=== PATIENT | female | born 1965 | race African-American/Black ===

== ENCOUNTER 2024-01-29 08:51 | Inpatient (IN) | payer MEDICAID ==
[~2024-01-29] VITALS: Ht 165.1 cm; Wt 113.9 kg
[~2024-01-29 08:51] MED LIST: AMLO10TA80 MT; CLOP75TA33 PO; HYDR-2988 MT; LOSA50TA41 MT
[2024-01-29 08:54] VITALS: O2SAT 99
[2024-01-29 09:27] LABS: BASOPHILS % 0.6 % (0.0-2.0); EOSINOPHILS % 3.5 % (0.0-5.0); HEMATOCRIT. 35.8 % (36.0-48.0); HEMOGLOBIN. 12.2 g/dL (12.0-16.0); LYMPHOCYTES % 31.7 % (20.0-50.0); MEAN CORPUSCULAR HEMOGLOBIN 31.3 pg (28.0-32.0); MEAN CORPUSCULAR HGB CONC 34.2 g/dL (31.0-37.0); MEAN CORPUSCULAR VOLUME 91.4 fL (81.0-99.0); MONOCYTES % 6.6 % (2.0-8.0); NEUTROPHILS % 57.6 % (40.0-76.0); PLATELET 360 x1000/uL (130-400); RED BLOOD CELL COUNT 3.91 mill/uL (4.2-5.4); RED CELL DISTRIBUTION WIDTH 12.4 % (11.6-14.6); WHITE BLOOD COUNT 5.2 x1000/uL (4.5-11.0)
[2024-01-29 09:36] LABS: CHLORIDE 106 mEq/L (98-107); POTASSIUM 3.7 mEq/L (3.5-5.1); SODIUM 140 mEq/L (136-145)
[2024-01-29 09:37] LABS: CALCIUM 10.5 mg/dL (8.7-10.4); CARBON DIOXIDE 28 mEq/L (21-32)
[2024-01-29 09:39] LABS: PROTHROMBIN TIME 10.9 sec (9.6-11.0)
[2024-01-29 09:42] LABS: CREATININE 0.6 mg/dL (0.6-1.0); GLUCOSE 95 mg/dL (70-105)
[2024-01-29 09:43] LABS: UREA NITROGEN BLOOD 12 mg/dL (9-23)
[2024-01-29 09:55] LABS: TROPONIN I HIGH SENSITIVITY < 4 ng/L (3.0-34)
[2024-01-29] MEDS: HYDRALAZINE 20MG/ML VIAL IV ONE (12:15)
[2024-01-29 14:56] LABS: CLARITY URINE CLEAR (CLEAR); COLOR URINE YELLOW (YELLOW); GLUCOSE URINE NEGATIVE (NEGATIVE); KETONES URINE NEGATIVE (NEGATIVE); LEUKOCYTE ESTERASE URINE NEGATIVE (NEGATIVE); NITRITE URINE NEGATIVE (NEGATIVE); OCCULT BLOOD URINE NEGATIVE (NEGATIVE); PH URINE 7.5 (4.5-8.0); PROTEIN URINE NEGATIVE (NEGATIVE); SPECIFIC GRAVITY URINE 1.021 (1.005-1.030)
[2024-01-29] MEDS ORDERED: ONDANSETRON HCL 4MG/2ML INJ IV PRN (15:45)
[2024-01-29] MEDS ORDERED: GUAIFENESIN 200MG/10ML SUGAR FREE UDC PO PRN (15:45)
[2024-01-29] MEDS ORDERED: ACETAMINOPHEN 325MG TABLET PO PRN (15:45)
[2024-01-29] MEDS ORDERED: CLONIDINE 0.1MG TABLET PO PRN (15:45)
[2024-01-29] MEDS ORDERED: IPRATROPIUM/ALBUTEROL 0.5-3(2.5)MG/3ML NEB HHN PRN (15:45)
[2024-01-29] MEDS ORDERED: NA PHOS,M-B/NA PHOS,DI-BA ENEMA 118ML PR PRN (15:45)
[2024-01-29] MEDS ORDERED: MAGNESIUM/ALUMINUM HYDROXIDE/SIMETHICONE 30ML UDC PO PRN (15:45)
[2024-01-29 17:30] VITALS: BP 152/84; PULSE 77; RESP 18; TEMP 97.9
[2024-01-29] MEDS: ENOXAPARIN 30MG/0.3ML SYR SUBCUT SCH (19:18)
[2024-01-29] MEDS: HYDRALAZINE HCL 10MG TABLET PO SCH (19:30)
[2024-01-29 20:00] VITALS: BP 130/77; PULSE 79; RESP 20; TEMP 97.7
[2024-01-29] MEDS: GABAPENTIN 100MG CAPSULE PO SCH (22:36)
[2024-01-30] VITALS: BP 108/56; PULSE 87; RESP 20; TEMP 97.7
[2024-01-30 01:25] LABS: CREATINE KINASE 23 IU/L (34-145)
[2024-01-30] MEDS ORDERED: *PATIENT'S OWN MEDICATION STORAGE XX SCH (03:45)
[2024-01-30 04:00] VITALS: BP 120/72; PULSE 80; RESP 20; TEMP 97.9
[2024-01-30 08:00] VITALS: BP 119/70; PULSE 78; RESP 19; TEMP 97.5
[2024-01-30] MEDS: LOSARTAN 50 MG TABLET PO SCH (08:28)
[2024-01-30] MEDS: CLOPIDOGREL 75MG TABLET PO SCH (08:28)
[2024-01-30 12:00] VITALS: BP 109/63; PULSE 77; RESP 18; TEMP 97.5
[2024-01-30 16:00] VITALS: BP 113/68; PULSE 78; RESP 19; TEMP 98.1
[2024-01-30] MEDS: FAMOTIDINE 20MG TABLET PO SCH (21:00)
[2024-01-30] MEDS: FLUTICASONE PROPIONATE 50MCG/SPRAY BOTTLE BOTHNSTRLS SCH (21:00)
[2024-01-31] VITALS: BP 107/60; PULSE 71; RESP 18; TEMP 97.5
[2024-01-31 04:00] VITALS: BP 108/61; PULSE 65; RESP 18; TEMP 97
[2024-01-31 08:00] VITALS: BP 126/77; PULSE 72; RESP 18; TEMP 96.8
[2024-01-31] MEDS: AMLODIPINE 10MG TABLET PO SCH (09:00)
[2024-01-31 12:00] VITALS: BP 115/63; PULSE 72; RESP 18; TEMP 96.9
[2024-01-31 16:00] VITALS: BP 127/79; PULSE 69; RESP 20; TEMP 96.6
[2024-01-31] MEDS: DICLOFENAC SODIUM 1% GEL 50GM TOP SCH (19:30)
[2024-01-31 20:00] VITALS: BP 95/68; PULSE 63; RESP 18; TEMP 98
[2024-02-01] VITALS: BP 132/81; PULSE 71; RESP 18; TEMP 98
[2024-02-01 04:00] VITALS: BP 123/67; PULSE 77; RESP 18; TEMP 97.6
[2024-02-01] MEDS: ACETAMINOPHEN 325MG TABLET PO PRN (06:20)
[2024-02-01 08:00] VITALS: BP 130/82; PULSE 68; RESP 18; TEMP 97.5
[2024-02-01 12:00] VITALS: BP 120/75; PULSE 68; RESP 19; TEMP 97.9
[2024-02-01 16:00] VITALS: BP 137/78; PULSE 75; RESP 18; TEMP 97.9
[2024-02-01 20:00] VITALS: BP 115/62; PULSE 80; RESP 19; TEMP 98.4
[2024-02-02] VITALS: BP 122/66; PULSE 82; RESP 18; TEMP 97.7
[2024-02-02 04:00] VITALS: BP 119/66; PULSE 70; RESP 19; TEMP 98.3
[2024-02-02 08:00] VITALS: BP 112/68; PULSE 64; RESP 20; TEMP 98.1
[2024-02-02 12:00] VITALS: BP 108/63; PULSE 67; RESP 20; TEMP 98.1
[2024-02-02 16:00] VITALS: BP 115/73; PULSE 84; RESP 20; TEMP 98.1
[2024-02-03 08:00] VITALS: BP 115/71; PULSE 71; RESP 18; TEMP 97.7
[2024-02-03 12:00] VITALS: BP 112/63; PULSE 69; RESP 18; TEMP 97.7
[2024-02-03 16:00] VITALS: BP 107/56; PULSE 75; RESP 18; TEMP 98.2
[2024-02-03 20:00] VITALS: BP 103/63; PULSE 78; RESP 20; TEMP 97.5
[2024-02-04] VITALS: BP 118/65; PULSE 69; RESP 20; TEMP 97.9
[2024-02-04 04:00] VITALS: BP 119/63; PULSE 70; RESP 20; TEMP 96.1
[2024-02-04 08:00] VITALS: BP 120/63; PULSE 66; RESP 17; TEMP 97.5
[2024-02-04 12:00] VITALS: BP 98/72; PULSE 75; RESP 18; TEMP 97.3
[2024-02-04 16:00] VITALS: BP 106/57; PULSE 81; RESP 20; TEMP 97.1
[2024-02-04 20:00] VITALS: BP 108/66; PULSE 80; RESP 18; TEMP 97.9
[2024-02-05] VITALS: BP 118/74; PULSE 88; RESP 18; TEMP 97.7
[2024-02-05 04:00] VITALS: BP 119/69; PULSE 70; RESP 18; TEMP 97.9
[2024-02-05 08:00] VITALS: BP 126/76; PULSE 70; RESP 19; TEMP 97.7
[2024-02-05 12:00] VITALS: PULSE 68; RESP 18; TEMP 97.4
[2024-02-05 16:00] VITALS: BP 120/68; PULSE 73; RESP 18; TEMP 97.6
[2024-02-05 20:00] VITALS: BP 94/48; PULSE 70; RESP 19; TEMP 98
[2024-02-06] VITALS: BP 91/59; PULSE 62; RESP 18; TEMP 97.4
[2024-02-06 04:00] VITALS: BP 115/60; PULSE 68; RESP 20; TEMP 97.1
[2024-02-06 08:00] VITALS: BP 113/70; PULSE 65; RESP 20; TEMP 98.1
[2024-02-06 12:00] VITALS: BP 115/70; PULSE 69; RESP 20; TEMP 98.8
[2024-02-06 16:00] VITALS: BP_SYST 109; BP_SYST 114; BP_DIAS 74; PULSE 71; RESP 20; RESP 21; TEMP 97.9
[2024-02-06 20:00] VITALS: BP 102/57; PULSE 78; RESP 20; TEMP 97.5
[2024-02-07] VITALS: BP 105/62; PULSE 68; RESP 20; TEMP 97.7
[2024-02-07 08:00] VITALS: BP 114/66; PULSE 70; RESP 19; TEMP 96.3
[2024-02-07 12:00] VITALS: BP 106/49; PULSE 84; RESP 18; TEMP 96.3
[2024-02-07 16:00] VITALS: BP 99/57; PULSE 91; RESP 19; TEMP 98.2
[2024-02-07 20:00] VITALS: BP 112/58; PULSE 82; RESP 20; TEMP 100
[2024-02-08 04:00] VITALS: BP 109/63; PULSE 72; RESP 18; TEMP 98.1
[2024-02-08 08:00] VITALS: BP 109/63; PULSE 67; RESP 17; TEMP 97.8
[2024-02-08 12:00] VITALS: BP 111/69; PULSE 74; RESP 18; TEMP 97.4
[2024-02-08 16:00] VITALS: BP 104/61; PULSE 70; RESP 18; TEMP 97.8
[2024-02-08 20:00] VITALS: BP 122/62; PULSE 75; RESP 18; TEMP 98.2
[2024-02-09] VITALS: BP 121/72; PULSE 85; RESP 18; TEMP 98.8
[2024-02-09 04:00] VITALS: BP 126/67; PULSE 73; RESP 18; TEMP 97.7
[2024-02-09 08:00] VITALS: BP 132/69; PULSE 68; RESP 19; TEMP 97.8
[2024-02-09 12:00] VITALS: BP 121/71; PULSE 68; RESP 20; TEMP 96.7
[2024-02-09 16:00] VITALS: BP 132/67; PULSE 72; RESP 19; TEMP 96.7
[2024-02-09 20:00] VITALS: BP 125/63; PULSE 77; RESP 18; TEMP 97.7
[2024-02-10] VITALS: BP 115/65; PULSE 68; RESP 18; TEMP 97.7
[2024-02-10 04:00] VITALS: BP 120/68; PULSE 67; RESP 18; TEMP 97.5
[2024-02-10 08:00] VITALS: BP 125/76; PULSE 70; RESP 19; TEMP 98.1
[2024-02-10 12:00] VITALS: BP 114/64; PULSE 62; RESP 20; TEMP 98.2
[2024-02-10 16:00] VITALS: BP 113/63; PULSE 85; RESP 20; TEMP 97.1
[2024-02-10 20:00] VITALS: BP 136/61; PULSE 77; RESP 20; TEMP 97.7
[2024-02-11 04:00] VITALS: BP 116/66; PULSE 71; RESP 20; TEMP 95.9
[2024-02-11 08:00] VITALS: BP 122/59; PULSE 71; RESP 21; TEMP 97.2
[2024-02-11] MEDS: DOCUSATE SODIUM 100MG CAPSULE PO PRN (09:24)
[2024-02-11 12:00] VITALS: BP 134/55; PULSE 73; RESP 18; TEMP 97.4
[2024-02-11 16:00] VITALS: BP 130/62; PULSE 70; RESP 18; TEMP 97.7
[2024-02-11 20:00] VITALS: BP 95/50; PULSE 77; RESP 19; TEMP 98
[2024-02-12 04:00] VITALS: BP 132/78; PULSE 73; RESP 20; TEMP 97.7
[2024-02-12 08:00] VITALS: BP 138/81; PULSE 63; RESP 18; TEMP 96.8
[2024-02-12 12:00] VITALS: BP 132/71; PULSE 66; RESP 20; TEMP 97
[2024-02-12 16:00] VITALS: BP 141/72; PULSE 70; RESP 18; TEMP 97.5
[2024-02-12 20:00] VITALS: BP 104/58; PULSE 70; RESP 20; TEMP 97.7
[2024-02-13] VITALS: BP 101/60; PULSE 68; RESP 19; TEMP 97.6
[2024-02-13 04:00] VITALS: BP 119/61; PULSE 64; RESP 20; TEMP 98.4
[2024-02-13 08:00] VITALS: BP 126/74; PULSE 65; RESP 19; TEMP 97.7
[2024-02-13 12:00] VITALS: BP 119/73; PULSE 69; RESP 18; TEMP 97.5
[2024-02-13 16:00] VITALS: BP 113/79; PULSE 72; RESP 18; TEMP 97.7
[2024-02-13 20:00] VITALS: BP 114/65; PULSE 81; RESP 18; TEMP 98.2
[2024-02-14] VITALS: BP 95/52; PULSE 79; RESP 20; TEMP 97.8
[2024-02-14 04:00] VITALS: BP 95/53; PULSE 79; RESP 18; TEMP 98.6
[2024-02-14 08:00] VITALS: BP 120/69; PULSE 71; RESP 19; TEMP 96.7
[2024-02-14 12:00] VITALS: BP 109/61; PULSE 68; RESP 19; TEMP 98.9
[2024-02-14 16:00] VITALS: BP 104/59; PULSE 74; RESP 20; TEMP 96.7
[2024-02-14 20:00] VITALS: BP 123/60; PULSE 69; RESP 18; TEMP 97.8
[2024-02-15] VITALS: BP 117/61; PULSE 69; RESP 16; TEMP 98
[2024-02-15 04:00] VITALS: BP 121/66; PULSE 70; RESP 18; TEMP 98
[2024-02-15 08:00] VITALS: BP 121/74; PULSE 70; RESP 18; TEMP 97.9
[2024-02-15 12:00] VITALS: BP 115/66; PULSE 78; RESP 18; TEMP 97.5
[2024-02-15 16:00] VITALS: BP 130/75; PULSE 73; RESP 19; TEMP 98.2
[2024-02-15 20:00] VITALS: BP 115/53; PULSE 78; RESP 20; TEMP 97.7
[2024-02-16] VITALS (7 sets, daily range): BP systolic 101–140; BP diastolic 57–69; PULSE 69–92; RESP 18–20; TEMP 97.3–97.9
[2024-02-17] VITALS: BP 108/72; PULSE 72; RESP 20; TEMP 98.1
[2024-02-17 04:00] VITALS: BP 104/67; PULSE 63; RESP 17; TEMP 97.1
[2024-02-17 08:00] VITALS: BP 127/68; PULSE 76; RESP 19; TEMP 96.7
[2024-02-17 12:00] VITALS: BP 116/57; PULSE 71; RESP 20; TEMP 98.8
[2024-02-17 16:00] VITALS: BP 105/53; PULSE 74; RESP 20; TEMP 98.6
[2024-02-17 20:00] VITALS: BP 100/55; PULSE 75; RESP 19; TEMP 98.4
[2024-02-18] VITALS: BP 110/57; PULSE 84; RESP 19; TEMP 97.8
[2024-02-18 04:00] VITALS: BP 114/67; PULSE 76; RESP 19; TEMP 97.7
[2024-02-18 08:00] VITALS: BP 122/82; PULSE 70; RESP 21; TEMP 97.9
[2024-02-18 12:00] VITALS: BP 98/60; PULSE 76; RESP 20; TEMP 97.8
[2024-02-18 16:17] LABS: HEMATOCRIT 33.6 % (36.0-48.0); HEMOGLOBIN 11.4 g/dL (12.0-16.0); MEAN CORPUSCULAR HGB CONC 33.9 g/dL (31.0-37.0); MEAN CORPUSCULAR VOLUME 91.7 fL (81.0-99.0); PLATELET 367 x1000/uL (130-400); RED BLOOD CELL COUNT 3.66 mill/uL (4.2-5.4); RED CELL DISTRIBUTION WIDTH 12.6 % (11.6-14.6); WHITE BLOOD COUNT 4.7 x1000/uL (4.5-11.0)
[2024-02-18 16:18] LABS: CHLORIDE 101 mEq/L (98-107); POTASSIUM 3.6 mEq/L (3.5-5.1); SODIUM 137 mEq/L (136-145)
[2024-02-18 16:19] LABS: CALCIUM 9.9 mg/dL (8.7-10.4); CARBON DIOXIDE 31 mEq/L (21-32)
[2024-02-18 16:24] LABS: CREATININE 0.7 mg/dL (0.6-1.0); GLUCOSE 105 mg/dL (70-105); UREA NITROGEN BLOOD 10 mg/dL (9-23)
[2024-02-18 20:00] VITALS: BP 103/64; PULSE 82; RESP 18; TEMP 97.7
[2024-02-19] VITALS: BP 106/64; PULSE 80; RESP 18; TEMP 97.6
[2024-02-19 04:00] VITALS: BP 106/58; PULSE 75; RESP 18; TEMP 97.2
[2024-02-19 08:00] VITALS: BP 118/67; PULSE 66; RESP 20; TEMP 97.3
[2024-02-19 12:00] VITALS: BP_SYST 107; BP_SYST 125; BP_DIAS 63; BP_DIAS 71; PULSE 69; PULSE 83; RESP 18; RESP 21; TEMP 97.2; TEMP 97.3
[2024-02-19 16:00] VITALS: BP 119/64; PULSE 70; RESP 20; TEMP 97.2
[2024-02-19 20:00] VITALS: BP 90/42; PULSE 59; RESP 20; TEMP 97.9
[2024-02-20] VITALS: BP 114/61; PULSE 77; RESP 20; TEMP 97.5
[2024-02-20 04:00] VITALS: BP 114/61; PULSE 77; RESP 20; TEMP 97.5
[2024-02-20 08:00] VITALS: BP 119/89; PULSE 68; RESP 19; TEMP 97.7
[2024-02-20 12:00] VITALS: BP 130/72; PULSE 66; RESP 18; TEMP 97.7
[2024-02-20 16:00] VITALS: BP 130/75; PULSE 70; RESP 19; TEMP 97.7
[2024-02-20 20:00] VITALS: BP 118/57; PULSE 70; RESP 20; TEMP 96.8
[2024-02-21] VITALS: BP 120/68; PULSE 68; RESP 20; TEMP 96.3
[2024-02-21 04:00] VITALS: BP 117/64; PULSE 66; RESP 20; TEMP 96.4
[2024-02-21 08:00] VITALS: BP 124/72; PULSE 68; RESP 18; TEMP 96.8
[2024-02-21 12:00] VITALS: BP 128/72; PULSE 68; RESP 18; TEMP 97.2
[2024-02-21 16:00] VITALS: BP 125/70; PULSE 68; RESP 18; TEMP 97.5
[2024-02-21 20:00] VITALS: BP 114/68; PULSE 76; RESP 18; TEMP 97.7
[2024-02-22] VITALS: BP 111/60; PULSE 68; RESP 18; TEMP 96.1
[2024-02-22 04:00] VITALS: BP 108/62; PULSE 71; RESP 18; TEMP 97.5
[2024-02-22 08:00] VITALS: BP 123/73; PULSE 66; RESP 18; TEMP 97.5
[2024-02-22 12:00] VITALS: BP 121/67; PULSE 62; RESP 18; TEMP 97.4
[2024-02-22 16:00] VITALS: BP 126/62; PULSE 71; RESP 18; TEMP 97.7
[2024-02-22 20:00] VITALS: BP 114/54; PULSE 72; RESP 20; TEMP 96.6
[2024-02-23 04:00] VITALS: BP 97/54; PULSE 71; RESP 18; TEMP 97.7
[2024-02-23 08:00] VITALS: BP 109/57; PULSE 65; RESP 20; TEMP 97.8
[2024-02-23 12:00] VITALS: BP 115/60; PULSE 61; RESP 20; TEMP 97.4
[2024-02-23 16:00] VITALS: BP 110/70; PULSE 60; RESP 20; TEMP 97.6
[2024-02-23 20:00] VITALS: BP 104/54; PULSE 74; RESP 18; TEMP 97.9
[2024-02-24 04:00] VITALS: BP 117/63; PULSE 72; RESP 19; TEMP 97.5
[2024-02-24 08:00] VITALS: BP 115/74; PULSE 74; RESP 18; TEMP 97.8
[2024-02-24 12:00] VITALS: BP 121/72; PULSE 68; RESP 17; TEMP 97.7
[2024-02-24 16:00] VITALS: BP 121/68; PULSE 71; RESP 18; TEMP 97.7
[2024-02-24 20:00] VITALS: BP 102/54; PULSE 87; RESP 20; TEMP 97.4
[2024-02-25] VITALS: BP 110/56; PULSE 82; RESP 20; TEMP 97.2
[2024-02-25 04:00] VITALS: BP 108/54; PULSE 73; RESP 20; TEMP 96.8
[2024-02-25 08:00] VITALS: BP 127/73; PULSE 66; RESP 18; TEMP 97.6
[2024-02-25 12:00] VITALS: BP 111/64; PULSE 72; RESP 18; TEMP 98.1
[2024-02-25 16:00] VITALS: BP 111/61; PULSE 75; RESP 19; TEMP 98.8
[2024-02-25 20:00] VITALS: BP 107/64; PULSE 78; RESP 20; TEMP 97.7
[2024-02-26] VITALS: BP 110/62; PULSE 74; RESP 20; TEMP 97.2
[2024-02-26 04:00] VITALS: BP 125/81; PULSE 77; RESP 20; TEMP 97.4
[2024-02-26 08:00] VITALS: BP_SYST 107; BP_SYST 120; BP_DIAS 64; BP_DIAS 71; PULSE 66; PULSE 78; RESP 19; RESP 20; TEMP 96.8; TEMP 97.7
[2024-02-26 12:00] VITALS: BP 120/79; PULSE 77; RESP 20; TEMP 98
[2024-02-26 16:00] VITALS: BP 120/79; PULSE 77; RESP 20; TEMP 97.9
[2024-02-26 20:00] VITALS: BP 102/70; PULSE 84; RESP 20; TEMP 97.9
[2024-02-27] VITALS: BP 108/76; PULSE 80; RESP 20; TEMP 97.2
[2024-02-27 04:00] VITALS: BP 104/61; PULSE 72; RESP 20; TEMP 97.5
[2024-02-27 08:00] VITALS: BP 105/58; PULSE 72; RESP 20; TEMP 98.1
[2024-02-27 12:00] VITALS: BP 109/46; PULSE 68; RESP 20; TEMP 98.1
[2024-02-27 16:00] VITALS: BP 110/70; PULSE 72; RESP 20; TEMP 98.2
[2024-02-27 20:00] VITALS: BP 104/58; PULSE 74; RESP 18; TEMP 99.1
[2024-02-27] MEDS: GABAPENTIN 100MG CAPSULE PO SCH (21:09)
[2024-02-28] VITALS: BP 100/54; PULSE 68; RESP 20; TEMP 98.2
[2024-02-28 04:00] VITALS: BP 108/73; PULSE 69; RESP 17; TEMP 97.5
[2024-02-28 08:00] VITALS: BP 120/70; PULSE 72; RESP 20; TEMP 98
[2024-02-28] MEDS ORDERED: GABA-529 PO (11:46)
[2024-02-28 12:00] VITALS: BP 110/70; PULSE 69; RESP 17; TEMP 98
[2024-02-28 16:00] VITALS: BP 120/78; PULSE 69; RESP 17; TEMP 98.1
== END 2024-02-28 19:25 | DRG 113 ==
LOC: ER 09:04 → 5WST 12:15 → EDBEDREQ 12:20 → EDBEDREQTM 12:20 → 6EST 17:15
PROVIDERS: ADMIT Preventive Medicine Clinical Informatics; ATTEND Preventive Medicine Clinical Informatics
DX: J06.9 Acute upper respiratory infection, unspecified (principal); I11.0 Hypertensive heart disease with heart failure; S71.111A Laceration without foreign body, right thigh, initial encounter; I50.32 Chronic diastolic (congestive) heart failure; I16.0 Hypertensive urgency; Z20.822 Contact with and (suspected) exposure to COVID-19; E66.9 Obesity, unspecified; Z79.899 Other long term (current) drug therapy; Z86.73 Personal history of transient ischemic attack (TIA), and cerebral infarction without residual deficits; X58.XXXA Exposure to other specified factors, initial encounter; Y93.89 Activity, other specified; Y92.89 Other specified places as the place of occurrence of the external cause; Y99.8 Other external cause status; Z68.41 Body mass index [BMI] 40.0-44.9, adult
CPT/HCPCS: 36415; 71045; 80048; 81003; 82550; 84484; 85025; 85027; 87426; 93005; 93306; 97110; 97162; 97166; 97530; 97535; 99285; J1650

== ENCOUNTER 2024-07-17 05:19 | Inpatient (IN) | payer MEDICAID ==
[~2024-07-17] VITALS: Ht 157.5 cm; Wt 120.7 kg
[~2024-07-17 05:19] MED LIST changes: +APIX5TAB PO; +DICL75TA5 PO; +GABA-529 PO; -HYDR-2988 MT
[2024-07-17 06:04] LABS: HEMATOCRIT. 35.4 % (36.0-48.0); HEMOGLOBIN. 11.7 g/dL (12.0-16.0); MEAN CORPUSCULAR HGB CONC 33.1 g/dL (31.0-37.0); MEAN CORPUSCULAR VOLUME 93.5 fL (81.0-99.0); MEAN PLATELET VOLUME 8.4 fl (7.4-10.4); PLATELET 355 x1000/uL (130-400); RED BLOOD CELL COUNT 3.78 mill/uL (4.2-5.4); RED CELL DISTRIBUTION WIDTH 12.8 % (11.6-14.6); WHITE BLOOD COUNT 4.3 x1000/uL (4.5-11.0)
[2024-07-17 06:13] LABS: CALCIUM 10.2 mg/dL (8.7-10.4); CARBON DIOXIDE 29 mEq/L (21-32); CHLORIDE 108 mEq/L (98-107); POTASSIUM 3.6 mEq/L (3.5-5.1); SODIUM 142 mEq/L (136-145)
[2024-07-17 06:19] LABS: CREATININE 0.7 mg/dL (0.6-1.0); GLUCOSE 104 mg/dL (70-105); UREA NITROGEN BLOOD 14 mg/dL (9-23)
[2024-07-17] MEDS: ACETAMINOPHEN 325MG TABLET PO ONE (06:55)
[2024-07-17] MEDS: METOCLOPRAMIDE HCL 10MG/2ML VIAL IV ONE (06:55)
[2024-07-17 08:00] VITALS: BP 117/61; PULSE 70; RESP 15; TEMP 36.83628; O2SAT 97
[2024-07-17] MEDS ORDERED: IPRATROPIUM/ALBUTEROL 0.5-3(2.5)MG/3ML NEB HHN PRN (08:15)
[2024-07-17] MEDS ORDERED: ONDANSETRON HCL 4MG/2ML INJ IV PRN (08:15)
[2024-07-17] MEDS ORDERED: ACETAMINOPHEN 325MG TABLET PO PRN ×2 (08:15)
[2024-07-17] MEDS ORDERED: GUAIFENESIN 200MG/10ML SUGAR FREE UDC PO PRN (08:15)
[2024-07-17] MEDS: LOSARTAN 50 MG TABLET PO SCH (09:00)
[2024-07-17] MEDS: AMLODIPINE 5MG TABLET PO SCH (09:00)
[2024-07-17] MEDS ORDERED: ASPIRIN 81MG EC TABLET PO SCH (09:00)
[2024-07-17 09:10] LABS: PLATELET ESTIMATE NORMAL
[2024-07-17] MEDS: APIXABAN 5 MG TABLET PO SCH (10:00)
[2024-07-17] MEDS ORDERED: KETOROLAC 15MG/ML VIAL IV PRN (10:45)
[2024-07-17 13:34] VITALS: BP 133/88; PULSE 84; RESP 20; TEMP 36.696
[2024-07-17 14:52] LABS: THYROID STIMULATING HORMONE 1.76 uIU/mL (0.55-4.78)
[2024-07-17] MEDS: GABAPENTIN 100MG CAPSULE PO SCH (18:12)
[2024-07-17 20:00] VITALS: BP 105/79; PULSE 81; RESP 18; TEMP 36.22512; O2SAT 95
[2024-07-17] MEDS: FAMOTIDINE 20MG TABLET PO SCH (21:00)
[2024-07-18] VITALS: BP 111/54; PULSE 80; RESP 18; TEMP 36.114
[2024-07-18 04:00] VITALS: BP 125/50; PULSE 74; RESP 18; TEMP 36.22512; O2SAT 96
[2024-07-18] MEDS ORDERED: *PATIENT'S OWN MEDICATION STORAGE XX SCH (04:30)
[2024-07-18 08:00] VITALS: BP 116/69; PULSE 68; RESP 19; TEMP 36.114; O2SAT 100
[2024-07-18] MEDS: AMLODIPINE 10MG TABLET PO SCH (08:19)
[2024-07-18] MEDS: APIXABAN 5 MG TABLET PO SCH (08:20)
[2024-07-18] MEDS: FAMOTIDINE 20MG TABLET PO SCH (08:20)
[2024-07-18 12:00] VITALS: BP 138/83; PULSE 87; RESP 20; TEMP 36.55848; O2SAT 100
[2024-07-18] MEDS: ASPIRIN 81MG TABLET PO SCH (14:03)
[2024-07-18 16:00] VITALS: BP 119/75; PULSE 62; RESP 20; TEMP 36.22512; O2SAT 100
[2024-07-18 20:00] VITALS: BP 108/64; PULSE 77; RESP 18; TEMP 36.22512; O2SAT 98
[2024-07-18] MEDS: ATORVASTATIN CALCIUM 20MG TABLET PO SCH (21:06)
[2024-07-19] VITALS: BP 105/65; PULSE 74; RESP 18; TEMP 36.33624
[2024-07-19 04:00] VITALS: BP 123/67; PULSE 72; RESP 18; TEMP 36.22512; O2SAT 100
[2024-07-19 08:00] VITALS: BP 124/65; PULSE 64; RESP 17; TEMP 37.11408; O2SAT 98
[2024-07-19 12:00] VITALS: BP 115/58; PULSE 63; RESP 18; TEMP 36.61404; O2SAT 97
[2024-07-19 16:00] VITALS: BP 107/66; PULSE 67; RESP 18; TEMP 36.72516; O2SAT 97
[2024-07-19 20:00] VITALS: BP 105/63; PULSE 82; RESP 16; TEMP 36.3918; O2SAT 100
[2024-07-20] VITALS: BP 110/59; PULSE 79; RESP 16; TEMP 36.33624; O2SAT 98
[2024-07-20 04:00] VITALS: BP 107/71; PULSE 71; RESP 16; TEMP 36.3918; O2SAT 100
[2024-07-20 08:00] VITALS: BP 119/48; PULSE 85; RESP 16; TEMP 36.3918; O2SAT 100
[2024-07-20 12:00] VITALS: BP 126/72; PULSE 89; RESP 20; TEMP 36.55848; O2SAT 100
[2024-07-20 16:00] VITALS: BP 123/70; PULSE 82; RESP 20; TEMP 36.3918; O2SAT 99
[2024-07-20 20:00] VITALS: BP 105/57; PULSE 84; RESP 15; TEMP 37.28076; O2SAT 100
[2024-07-21] VITALS: BP 104/62; PULSE 82; RESP 15; TEMP 36.16956; O2SAT 96
[2024-07-21 04:00] VITALS: BP 110/62; PULSE 72; RESP 15; TEMP 36.6696; O2SAT 95
[2024-07-21 08:00] VITALS: BP 122/65; PULSE 76; RESP 18; TEMP 36.55848; O2SAT 76; O2SAT 98
[2024-07-21 12:00] VITALS: BP 121/58; PULSE 81; RESP 20; TEMP 36.33624; O2SAT 100
[2024-07-21 16:00] VITALS: BP 130/70; PULSE 80; RESP 20; TEMP 36.16956; O2SAT 99
[2024-07-21 20:00] VITALS: BP 115/54; PULSE 81; RESP 20; TEMP 36.44736; O2SAT 98
[2024-07-22] VITALS: BP 103/57; PULSE 88; RESP 20; TEMP 36.61404; O2SAT 96
[2024-07-22 04:00] VITALS: BP 107/57; PULSE 74; RESP 20; TEMP 36.55848; O2SAT 100
[2024-07-22 08:00] VITALS: BP 114/60; PULSE 67; RESP 18; TEMP 36.83628; O2SAT 99
[2024-07-22 12:00] VITALS: BP 106/54; PULSE 74; RESP 19; TEMP 36.33624; O2SAT 97
[2024-07-22 16:00] VITALS: BP 117/69; PULSE 74; RESP 18; TEMP 36.33624; O2SAT 98
[2024-07-22 20:00] VITALS: BP 112/65; PULSE 77; RESP 17; TEMP 36.22512; O2SAT 98
[2024-07-22] MEDS: DOCUSATE SODIUM 100MG CAPSULE PO PRN (21:02)
[2024-07-23] VITALS: PULSE 66; RESP 17; TEMP 36.22512; O2SAT 98
[2024-07-23 04:00] VITALS: BP 110/66; PULSE 69; RESP 18; TEMP 36.22512; O2SAT 98
[2024-07-23 08:00] VITALS: BP 117/75; PULSE 71; RESP 19; TEMP 36.33624; O2SAT 97
[2024-07-23 12:00] VITALS: BP 108/66; PULSE 78; RESP 18; TEMP 36.55848; O2SAT 98
[2024-07-23 16:00] VITALS: BP 113/65; PULSE 80; RESP 19; TEMP 36.3918; O2SAT 97
[2024-07-23 20:00] VITALS: BP 111/69; PULSE 79; RESP 18; TEMP 36.28068; O2SAT 97
[2024-07-24] VITALS: BP 118/74; PULSE 80; RESP 18; TEMP 36.114; O2SAT 98
[2024-07-24 04:00] VITALS: BP 119/66; PULSE 70; RESP 19; TEMP 36.3918; O2SAT 98
[2024-07-24 08:00] VITALS: BP 110/65; PULSE 68; RESP 20; TEMP 36.05844; O2SAT 97
[2024-07-24 16:00] VITALS: BP 113/66; PULSE 77; RESP 20; TEMP 36.16956; O2SAT 99
[2024-07-24 20:00] VITALS: BP 122/55; PULSE 82; RESP 18; TEMP 36.00288; O2SAT 95
[2024-07-25] VITALS: BP 121/65; PULSE 73; RESP 18; TEMP 36.16956; O2SAT 98
[2024-07-25 04:00] VITALS: BP 118/72; PULSE 67; RESP 18; TEMP 36.05844; O2SAT 96
[2024-07-25 08:00] VITALS: BP 129/81; PULSE 69; RESP 20; TEMP 36.78072; O2SAT 100
[2024-07-25 12:00] VITALS: BP 122/79; PULSE 71; RESP 19; TEMP 36.55848; O2SAT 100
[2024-07-25 16:00] VITALS: BP 130/71; PULSE 80; RESP 19; TEMP 36.83628; O2SAT 99
[2024-07-25 20:00] VITALS: BP 105/62; PULSE 58; RESP 18; TEMP 36.16956; O2SAT 100
[2024-07-26 04:00] VITALS: BP 119/67; PULSE 67; RESP 18; TEMP 36.05844; O2SAT 99
[2024-07-26 08:00] VITALS: BP 124/65; PULSE 63; RESP 17; TEMP 36.114; O2SAT 100
[2024-07-26 12:00] VITALS: BP 101/56; PULSE 60; RESP 19; TEMP 36.00288; O2SAT 98
[2024-07-26 16:00] VITALS: BP 117/54; PULSE 84; RESP 18; TEMP 36.114; O2SAT 100
[2024-07-26 20:00] VITALS: BP 123/61; PULSE 76; RESP 18; TEMP 36.50292; O2SAT 98
[2024-07-27] VITALS: BP 121/60; PULSE 89; RESP 18; TEMP 36.44736; O2SAT 95
[2024-07-27 04:00] VITALS: BP 139/67; PULSE 87; RESP 18; TEMP 36.55848; O2SAT 61
[2024-07-27 08:00] VITALS: BP 119/56; PULSE 71; RESP 20; TEMP 36.16956; O2SAT 99
[2024-07-27 12:00] VITALS: BP 110/55; PULSE 78; RESP 20; TEMP 36.16956; O2SAT 98
[2024-07-27 16:00] VITALS: BP 110/53; PULSE 70; RESP 20; TEMP 36.00288; O2SAT 98
[2024-07-27 20:00] VITALS: BP 96/51; PULSE 71; RESP 20; TEMP 36.50292; O2SAT 99
[2024-07-28] VITALS: BP 108/58; PULSE 68; RESP 19; TEMP 36.28068; O2SAT 96
[2024-07-28 04:00] VITALS: BP 106/55; PULSE 66; RESP 19; TEMP 36.44736; O2SAT 98
[2024-07-28 08:00] VITALS: BP 111/59; PULSE 70; RESP 16; TEMP 36.55848; O2SAT 100
[2024-07-28 12:00] VITALS: BP 107/54; PULSE 65; RESP 16; TEMP 35.8362; O2SAT 100
[2024-07-28 16:00] VITALS: BP 106/51; PULSE 65; RESP 19; TEMP 36.22512; O2SAT 100
[2024-07-28 20:00] VITALS: BP 97/46; PULSE 81; RESP 19; TEMP 36.50292; O2SAT 96
[2024-07-29] VITALS: BP 101/57; PULSE 74; RESP 17; TEMP 36.33624; O2SAT 100
[2024-07-29 04:00] VITALS: BP 95/59; PULSE 63; RESP 18; TEMP 36.44736; O2SAT 96
[2024-07-29 08:00] VITALS: BP 108/66; PULSE 60; RESP 19; TEMP 36.114; O2SAT 98
[2024-07-29 12:00] VITALS: BP 111/60; PULSE 68; RESP 18; TEMP 36.33624; O2SAT 97
[2024-07-29 16:00] VITALS: BP 112/69; PULSE 68; RESP 18; TEMP 36.55848; O2SAT 97
[2024-07-29 20:00] VITALS: BP 119/67; PULSE 76; RESP 20; TEMP 36.44736; O2SAT 96
[2024-07-30] VITALS: BP 109/53; PULSE 73; RESP 20; TEMP 36.16956; O2SAT 97
[2024-07-30 04:00] VITALS: BP 100/51; PULSE 64; RESP 20; TEMP 36.22512; O2SAT 98
[2024-07-30 08:00] VITALS: BP 115/62; PULSE 59; RESP 19; TEMP 36.61404; O2SAT 99
[2024-07-30 12:00] VITALS: BP 125/72; PULSE 73; RESP 18; TEMP 36.6696; O2SAT 98
[2024-07-30 16:00] VITALS: BP 109/56; PULSE 68; RESP 18; TEMP 36.55848; O2SAT 97
[2024-07-30 20:00] VITALS: BP 100/55; PULSE 98; RESP 18; TEMP 36.22512; O2SAT 98
[2024-07-31 04:00] VITALS: BP 101/57; PULSE 64; RESP 18; TEMP 36.22512; O2SAT 95
[2024-07-31 08:00] VITALS: BP 109/55; PULSE 64; RESP 20; TEMP 36.114; O2SAT 100
[2024-07-31 12:00] VITALS: BP 129/78; PULSE 83; RESP 20; TEMP 37.39188; O2SAT 100
[2024-07-31 16:00] VITALS: BP 95/54; PULSE 79; RESP 20; TEMP 36.00288; O2SAT 98
[2024-07-31 20:00] VITALS: BP 115/60; PULSE 60; RESP 18; TEMP 36.33624; O2SAT 99
[2024-08-01 04:00] VITALS: BP 103/56; PULSE 67; RESP 18; TEMP 36.28068; O2SAT 100
[2024-08-01 08:00] VITALS: BP 113/53; PULSE 60; RESP 20; TEMP 35.89176; O2SAT 99
[2024-08-01 16:00] VITALS: BP 98/51; PULSE 68; RESP 20; TEMP 36.00288; O2SAT 99
[2024-08-01 20:00] VITALS: BP 105/50; PULSE 71; RESP 18; TEMP 36.3918; O2SAT 100
[2024-08-02 04:00] VITALS: BP 121/55; PULSE 55; RESP 18; TEMP 36.05844; O2SAT 99
[2024-08-02 08:00] VITALS: BP 113/61; PULSE 60; RESP 20; TEMP 36.16956; O2SAT 100
[2024-08-02 12:00] VITALS: BP 112/51; PULSE 65; RESP 19; TEMP 35.78064; O2SAT 99
[2024-08-02 16:00] VITALS: BP 106/49; PULSE 62; RESP 20; TEMP 35.89176; O2SAT 98
[2024-08-02 20:00] VITALS: PULSE 65; RESP 18; TEMP 36.28068; O2SAT 97
[2024-08-03] VITALS: BP 125/81; PULSE 67; RESP 18; TEMP 36.16956; O2SAT 96
[2024-08-03 04:00] VITALS: BP 135/74; PULSE 57; RESP 18; TEMP 36.22512; O2SAT 100
[2024-08-03 07:43] VITALS: BP 118/60; PULSE 54; RESP 20; TEMP 36.114; O2SAT 100
[2024-08-03 12:00] VITALS: BP 115/60; PULSE 65; RESP 20; TEMP 36.114; O2SAT 100
[2024-08-03 16:00] VITALS: BP 125/63; PULSE 64; RESP 18; TEMP 36.6696; O2SAT 100
[2024-08-03 20:00] VITALS: BP 109/81; PULSE 71; RESP 19; TEMP 36.78072; O2SAT 99
[2024-08-04 04:00] VITALS: BP 112/82; PULSE 67; RESP 19; TEMP 36.3918; O2SAT 97
[2024-08-04 08:00] VITALS: BP 129/71; PULSE 62; RESP 19; TEMP 36.28068; O2SAT 96
[2024-08-04 12:00] VITALS: BP 99/54; PULSE 74; RESP 20; TEMP 36.6696; O2SAT 100
[2024-08-04 16:00] VITALS: BP 123/62; PULSE 75; RESP 19; TEMP 36.3918; O2SAT 100
[2024-08-04 20:00] VITALS: BP 121/68; PULSE 73; RESP 17; TEMP 36.61404; O2SAT 99
[2024-08-05 04:00] VITALS: BP 126/72; PULSE 71; RESP 18; TEMP 36.05844; O2SAT 98
[2024-08-05 08:00] VITALS: BP 140/76; PULSE 63; RESP 19; TEMP 36.44736; O2SAT 100
[2024-08-05 12:00] VITALS: BP 134/59; PULSE 74; RESP 20; TEMP 36.05844; O2SAT 100
[2024-08-05 16:00] VITALS: BP 113/69; PULSE 75; RESP 19; TEMP 36.44736; O2SAT 98
[2024-08-05 20:00] VITALS: BP 110/67; PULSE 85; RESP 18; TEMP 36.22512; O2SAT 97
[2024-08-06 04:00] VITALS: BP 118/60; PULSE 68; RESP 18; TEMP 36.22512; O2SAT 97
[2024-08-06 08:00] VITALS: BP 136/65; PULSE 67; RESP 20; TEMP 36.89184; O2SAT 100
[2024-08-06 12:00] VITALS: PULSE 85; RESP 20; TEMP 36.114; O2SAT 100
[2024-08-06 16:00] VITALS: BP 130/69; PULSE 75; RESP 20; TEMP 36.114; O2SAT 98
[2024-08-06 20:00] VITALS: BP 127/81; PULSE 92; RESP 18; TEMP 36.44736; O2SAT 96
[2024-08-07] VITALS: BP 130/83; PULSE 94; RESP 18; TEMP 36.78072; O2SAT 98
[2024-08-07 04:00] VITALS: BP 107/65; PULSE 83; RESP 18; TEMP 36.33624; O2SAT 90
[2024-08-07 08:00] VITALS: BP 109/52; PULSE 69; RESP 20; TEMP 36.05844; O2SAT 99
[2024-08-07 12:00] VITALS: BP 141/90; PULSE 74; RESP 20; TEMP 35.89176; O2SAT 98
[2024-08-07 16:00] VITALS: BP 136/83; PULSE 85; RESP 20; TEMP 36.05844; O2SAT 99
[2024-08-07 20:00] VITALS: BP 119/72; PULSE 79; RESP 18; TEMP 36.05844; O2SAT 98
[2024-08-08 04:00] VITALS: BP 121/81; PULSE 88; RESP 17; TEMP 36.22512; O2SAT 97
[2024-08-08 08:00] VITALS: BP 141/76; PULSE 64; RESP 20; TEMP 36.114; O2SAT 99
[2024-08-08 11:50] VITALS: BP 124/57; PULSE 72; RESP 18; TEMP 36.114; O2SAT 99
[2024-08-08 16:00] VITALS: BP 128/64; PULSE 68; RESP 20; TEMP 36.6696; O2SAT 100
[2024-08-08 20:00] VITALS: BP 103/56; PULSE 78; RESP 18; TEMP 36.33624; O2SAT 100
[2024-08-09 04:00] VITALS: BP 120/73; PULSE 62; RESP 18; TEMP 36.22512; O2SAT 100
[2024-08-09 08:00] VITALS: BP 124/56; PULSE 65; RESP 20; TEMP 36.114; O2SAT 100
[2024-08-09 12:00] VITALS: BP 115/60; PULSE 66; RESP 18; TEMP 36.78072; O2SAT 100
[2024-08-09 16:04] VITALS: BP 121/63; PULSE 72; RESP 18; TEMP 36.114; O2SAT 100
[2024-08-09 20:00] VITALS: BP 97/58; PULSE 74; RESP 18; TEMP 36.05844; O2SAT 100
[2024-08-10 04:00] VITALS: BP 116/67; PULSE 72; RESP 18; TEMP 36.114; O2SAT 99
[2024-08-10 16:00] VITALS: BP 132/57; PULSE 79; RESP 20; TEMP 36.114
[2024-08-10 20:00] VITALS: BP 125/75; PULSE 76; RESP 18; TEMP 36.114; O2SAT 99
[2024-08-11] VITALS: BP 127/77; PULSE 78; RESP 18; TEMP 36.16956; O2SAT 98
[2024-08-11 04:00] VITALS: BP 121/62; PULSE 67; RESP 18; TEMP 36.22512; O2SAT 99
[2024-08-11 08:06] VITALS: BP 119/60; PULSE 98; RESP 20; TEMP 36.89184; O2SAT 100
[2024-08-11 12:00] VITALS: BP 118/67; PULSE 82; RESP 18; TEMP 36.78072; O2SAT 98
[2024-08-11 16:00] VITALS: BP 107/61; PULSE 72; RESP 18; TEMP 36.55848; O2SAT 100
[2024-08-11 20:00] VITALS: BP 102/47; PULSE 85; RESP 18; TEMP 35.94732; O2SAT 99
[2024-08-12 04:00] VITALS: BP 118/63; PULSE 68; RESP 18; TEMP 36.61404; O2SAT 100
[2024-08-12 08:00] VITALS: BP 128/55; PULSE 90; RESP 18; TEMP 36.114; O2SAT 99
[2024-08-12 12:00] VITALS: BP 127/57; PULSE 70; RESP 20; TEMP 36.6696; O2SAT 100
[2024-08-12 16:00] VITALS: BP 122/63; PULSE 73; RESP 18; TEMP 36.114; O2SAT 99
[2024-08-13 04:00] VITALS: BP 133/64; PULSE 66; RESP 18; TEMP 36.50292; O2SAT 100
[2024-08-13 08:00] VITALS: BP 118/77; PULSE 70; RESP 18; TEMP 36.3918; O2SAT 98
[2024-08-13 12:00] VITALS: BP 113/71; PULSE 68; RESP 18; TEMP 36.44736; O2SAT 98
[2024-08-13 16:00] VITALS: BP 114/64; PULSE 74; RESP 19; TEMP 36.44736; O2SAT 99
[2024-08-13 20:00] VITALS: BP 106/65; PULSE 77; RESP 18; TEMP 36.22512; O2SAT 97
[2024-08-14 04:00] VITALS: BP 110/63; PULSE 72; RESP 18; TEMP 36.44736; O2SAT 100
[2024-08-14 08:00] VITALS: BP 109/68; PULSE 73; RESP 20; TEMP 36.28068; O2SAT 98
[2024-08-14 12:00] VITALS: BP 107/67; PULSE 71; RESP 19; TEMP 35.89176; O2SAT 98
[2024-08-14 16:00] VITALS: BP 115/70; PULSE 75; RESP 20; TEMP 36.05844; O2SAT 100
[2024-08-14 20:00] VITALS: BP 114/74; PULSE 73; RESP 18; TEMP 36.16956; O2SAT 100
[2024-08-15 04:00] VITALS: BP 134/92; PULSE 71; RESP 18; TEMP 36.22512; O2SAT 100
[2024-08-15 08:00] VITALS: BP 128/64; PULSE 66; RESP 20; TEMP 36.33624; O2SAT 100
[2024-08-15] MEDS: LOSARTAN 50 MG TABLET PO SCH (09:25)
[2024-08-15 12:00] VITALS: BP 126/56; PULSE 73; RESP 20; TEMP 36.55848; O2SAT 100
[2024-08-15] MEDS: GABAPENTIN 100MG CAPSULE PO SCH (14:00)
[2024-08-15 16:00] VITALS: BP 138/71; PULSE 77; RESP 20; TEMP 36.16956; O2SAT 100
[2024-08-15] MEDS ORDERED: FAMOTIDINE 20MG TABLET PO SCH (17:00)
[2024-08-15 20:00] VITALS: BP 114/65; PULSE 80; RESP 18; TEMP 36.114; O2SAT 97
[2024-08-15] MEDS: FAMOTIDINE 20MG TABLET PO SCH (20:13)
[2024-08-16 04:00] VITALS: BP 111/58; PULSE 67; RESP 18; TEMP 36.3918; O2SAT 100
[2024-08-16 08:00] VITALS: BP 121/59; PULSE 62; RESP 20; TEMP 36.50292; O2SAT 100
[2024-08-16] MEDS: ASPIRIN 81MG TABLET PO SCH (08:10)
[2024-08-16] MEDS: AMLODIPINE 10MG TABLET PO SCH (08:26)
[2024-08-16 12:00] VITALS: BP 130/67; PULSE 70; RESP 20; TEMP 36.28068; O2SAT 100
[2024-08-16 16:00] VITALS: BP 112/55; PULSE 68; RESP 20; TEMP 36.33624; O2SAT 99
[2024-08-16 20:00] VITALS: BP 121/69; PULSE 78; RESP 19; TEMP 36.22512; O2SAT 100
[2024-08-17] VITALS: BP 108/53; PULSE 90; RESP 18; TEMP 36.22512; O2SAT 99
[2024-08-17 04:00] VITALS: BP 109/59; PULSE 65; RESP 18; TEMP 36.28068; O2SAT 100
[2024-08-17 12:00] VITALS: BP 117/70; PULSE 79; RESP 18; TEMP 37.39188
[2024-08-17 16:00] VITALS: BP 128/70; PULSE 74; RESP 18; TEMP 36.16956
[2024-08-17 20:00] VITALS: BP 110/72; PULSE 70; RESP 20; TEMP 36.72516; O2SAT 100
[2024-08-18] VITALS: BP 108/66; PULSE 68; RESP 20; TEMP 36.78072; O2SAT 100
[2024-08-18 04:00] VITALS: BP 110/68; PULSE 72; RESP 20; TEMP 36.72516; O2SAT 100
[2024-08-18 08:00] VITALS: BP 106/50; PULSE 73; RESP 18; TEMP 36.3918; O2SAT 100
[2024-08-18 12:00] VITALS: BP 105/60; PULSE 65; RESP 18; TEMP 35.89176; O2SAT 97
[2024-08-18 16:00] VITALS: BP 122/69; PULSE 69; RESP 18; TEMP 35.78064; O2SAT 97
[2024-08-18 20:00] VITALS: BP 102/65; PULSE 73; RESP 18; TEMP 36.50292; O2SAT 98
[2024-08-19] VITALS: BP 112/68; PULSE 84; RESP 18; TEMP 37.11408; O2SAT 97
[2024-08-19 04:00] VITALS: BP 114/66; RESP 18; TEMP 36.61404; O2SAT 99
[2024-08-19 08:00] VITALS: BP 131/80; PULSE 70; RESP 18; TEMP 36.33624; O2SAT 97
[2024-08-19 12:00] VITALS: BP 101/64; PULSE 83; RESP 20; TEMP 36.6696; O2SAT 99
[2024-08-19 16:00] VITALS: BP 114/53; PULSE 75; RESP 18; TEMP 36.55848; O2SAT 98
[2024-08-19 20:00] VITALS: BP 112/56; PULSE 75; RESP 18; TEMP 36.3918; O2SAT 98
[2024-08-20 04:00] VITALS: BP 119/56; PULSE 62; RESP 19; TEMP 36.44736; O2SAT 100
[2024-08-20 08:00] VITALS: BP 123/60; PULSE 60; RESP 20; TEMP 36.00288; O2SAT 100
[2024-08-20 12:00] VITALS: RESP 20
[2024-08-20 13:22] VITALS: RESP 20
[2024-08-20 16:00] VITALS: BP 125/67; PULSE 73; RESP 20; TEMP 36.44736; O2SAT 100
[2024-08-20 20:00] VITALS: BP 102/56; PULSE 75; RESP 20; TEMP 36.33624; O2SAT 99
[2024-08-21 08:00] VITALS: BP 118/61; PULSE 65; RESP 20; TEMP 36.28068; O2SAT 100
[2024-08-21 12:00] VITALS: BP 126/73; PULSE 82; RESP 20; TEMP 36.33624; O2SAT 100
[2024-08-21 16:00] VITALS: BP 127/70; PULSE 83; RESP 20; TEMP 36.33624; O2SAT 100
[2024-08-21 20:00] VITALS: BP 121/79; PULSE 79; RESP 19; TEMP 36.72516; O2SAT 97
[2024-08-22 04:00] VITALS: BP 110/63; PULSE 85; RESP 20; TEMP 36.78072; O2SAT 99
[2024-08-22 08:00] VITALS: BP 106/62; PULSE 60; RESP 20; TEMP 35.8362; O2SAT 97
[2024-08-22 12:00] VITALS: RESP 20
[2024-08-22 16:48] VITALS: RESP 20
[2024-08-22 20:00] VITALS: BP 109/58; PULSE 65; RESP 18; TEMP 36.28068; O2SAT 99
[2024-08-22 22:52] VITALS: BP 109/58; PULSE 18; RESP 18; TEMP 36.28068; O2SAT 98
[2024-08-23] VITALS: BP 117/62; PULSE 16; RESP 18; TEMP 36.22512; O2SAT 98
[2024-08-23 12:00] VITALS: BP 164/81; PULSE 79; RESP 20; TEMP 36.6696; O2SAT 100
[2024-08-23 16:00] VITALS: BP 119/63; PULSE 87; RESP 20; TEMP 36.6696; O2SAT 100
[2024-08-23 20:00] VITALS: BP 116/79; PULSE 87; RESP 18; TEMP 36.72516; O2SAT 100
[2024-08-24 04:00] VITALS: BP 117/67; PULSE 73; RESP 18; TEMP 36.33624; O2SAT 99
[2024-08-24] MEDS: APIXABAN 5 MG TABLET PO SCH (17:06)
[2024-08-24 20:00] VITALS: BP 100/49; PULSE 70; RESP 18; TEMP 36.22512; O2SAT 98
[2024-08-24] MEDS: GABAPENTIN 100MG CAPSULE PO SCH (22:06)
[2024-08-25 04:00] VITALS: BP 102/49; PULSE 72; RESP 18; TEMP 36.22512; O2SAT 99
[2024-08-25 08:00] VITALS: BP 116/65; PULSE 72; RESP 2; TEMP 36.55848; O2SAT 100
[2024-08-25 12:00] VITALS: BP 119/52; PULSE 69; RESP 18; TEMP 36.61404; O2SAT 100
[2024-08-25 16:00] VITALS: BP 118/56; PULSE 69; RESP 18; TEMP 36.61404; O2SAT 99
[2024-08-25 20:00] VITALS: BP 107/58; PULSE 74; RESP 18; TEMP 36.61404; O2SAT 98
[2024-08-26 04:00] VITALS: BP 121/65; PULSE 58; RESP 18; TEMP 36.50292; O2SAT 100
[2024-08-26 08:00] VITALS: BP 125/76; PULSE 64; RESP 20; TEMP 36.114; O2SAT 99
[2024-08-26 16:00] VITALS: BP 123/55; PULSE 59; RESP 20; TEMP 36.44736; O2SAT 98
[2024-08-26 20:00] VITALS: BP 121/57; PULSE 74; RESP 18; TEMP 36.22512; O2SAT 98
[2024-08-27 04:00] VITALS: BP 121/61; PULSE 61; RESP 18; TEMP 36.50292; O2SAT 99
[2024-08-27 08:00] VITALS: BP 136/78; PULSE 58; RESP 19; TEMP 36.3918; O2SAT 98
[2024-08-27 12:00] VITALS: BP 143/71; PULSE 67; RESP 18; TEMP 36.50292; O2SAT 98
[2024-08-27 16:00] VITALS: BP 130/81; PULSE 75; RESP 18; TEMP 36.44736; O2SAT 98
[2024-08-27 20:00] VITALS: BP 132/78; PULSE 78; RESP 17; TEMP 36.3918; O2SAT 97
[2024-08-28 04:00] VITALS: BP 137/73; PULSE 75; RESP 18; TEMP 36.22512; O2SAT 95
[2024-08-28 06:00] VITALS: BP 111/49; PULSE 58; RESP 18; TEMP 36.61404; O2SAT 99
[2024-08-28 08:00] VITALS: BP 118/73; PULSE 59; RESP 17; TEMP 36.61404; O2SAT 100
[2024-08-28 12:00] VITALS: BP 17/99; PULSE 66; RESP 17; TEMP 36.72516; O2SAT 99
[2024-08-28 16:00] VITALS: BP 128/79; PULSE 88; RESP 17; TEMP 36.78072; O2SAT 97
[2024-08-28 20:00] VITALS: BP 125/75; PULSE 73; RESP 18; TEMP 36.50292; O2SAT 100
[2024-08-29 04:00] VITALS: BP 115/67; PULSE 66; RESP 18; TEMP 36.3918; O2SAT 100
[2024-08-29 08:00] VITALS: BP 122/63; PULSE 64; RESP 18; TEMP 35.89176; O2SAT 100
[2024-08-29 12:00] VITALS: BP 117/60; PULSE 64; RESP 18; TEMP 36.114; O2SAT 98
[2024-08-29 16:00] VITALS: BP 119/63; PULSE 63; RESP 18; TEMP 36.3918; O2SAT 100
[2024-08-29 20:00] VITALS: BP 135/60; PULSE 70; RESP 18; TEMP 36.6696; O2SAT 100
[2024-08-30 04:00] VITALS: BP 132/92; PULSE 70; RESP 18; TEMP 36.6696; O2SAT 99
[2024-08-30 08:00] VITALS: BP 110/67; PULSE 78; RESP 18; TEMP 36.22512; O2SAT 99
[2024-08-30 12:00] VITALS: BP 120/74; PULSE 70; RESP 19; TEMP 36.22512; O2SAT 99
[2024-08-30 16:00] VITALS: BP 125/73; PULSE 72; RESP 19; TEMP 36.22512; O2SAT 98
[2024-08-30 19:58] VITALS: BP 117/65; PULSE 78; RESP 20; TEMP 36.22512; O2SAT 100
[2024-08-30 23:37] VITALS: BP 134/77; PULSE 76; RESP 19; TEMP 36.22512; O2SAT 99
[2024-08-31 04:00] VITALS: BP 126/51; PULSE 82; RESP 20; TEMP 36.50292; O2SAT 100
[2024-08-31 08:00] VITALS: BP 125/77; PULSE 68; RESP 19; TEMP 36.50292; O2SAT 100
[2024-08-31 12:00] VITALS: BP 119/71; PULSE 64; RESP 22; TEMP 37.00296; O2SAT 100
[2024-08-31 16:00] VITALS: BP 113/62; PULSE 69; RESP 18; TEMP 36.61404; O2SAT 94
[2024-08-31 19:43] VITALS: BP 122/77; PULSE 75; RESP 20; TEMP 36.05844; O2SAT 100
[2024-08-31 23:35] VITALS: BP 132/69; PULSE 77; RESP 20; TEMP 36.33624; O2SAT 99
[2024-09-01 04:00] VITALS: BP 120/69; PULSE 56; RESP 20; TEMP 36.33624; O2SAT 99
[2024-09-01 06:12] VITALS: BP 120/69; PULSE 56; RESP 20; TEMP 36.33624; O2SAT 99
[2024-09-01 08:00] VITALS: BP 120/53; PULSE 60; RESP 18; TEMP 35.89176; O2SAT 100
[2024-09-01 12:00] VITALS: BP 129/64; PULSE 68; RESP 20; TEMP 36.22512; O2SAT 100
[2024-09-01 16:00] VITALS: RESP 20
[2024-09-02 04:00] VITALS: BP 121/60; PULSE 64; RESP 18; TEMP 36.33624; O2SAT 97
[2024-09-02 08:00] VITALS: BP 115/64; PULSE 58; RESP 16; TEMP 36.50292; O2SAT 97
[2024-09-02 16:00] VITALS: BP 139/60; PULSE 68; RESP 20; TEMP 36.44736; O2SAT 95
[2024-09-02 20:00] VITALS: BP 122/47; PULSE 71; RESP 19; TEMP 36.78072; O2SAT 99
[2024-09-03] VITALS: BP 131/50; PULSE 78; RESP 19; TEMP 37.11408; O2SAT 98
[2024-09-03 04:00] VITALS: BP 118/63; PULSE 82; RESP 19; TEMP 36.6696; O2SAT 99
[2024-09-03 08:00] VITALS: BP 123/70; PULSE 63; RESP 19; TEMP 36.78072; O2SAT 99
[2024-09-03 12:00] VITALS: BP 119/67; PULSE 102; RESP 20; TEMP 36.9474; O2SAT 100
[2024-09-03 16:00] VITALS: BP 117/70; RESP 18; TEMP 36.6696; O2SAT 99
[2024-09-03 20:00] VITALS: BP 120/68; PULSE 70; RESP 18; TEMP 36.16956; O2SAT 98
[2024-09-04] VITALS: BP 121/67; PULSE 75; RESP 18; TEMP 36.28068; O2SAT 97
[2024-09-04 04:00] VITALS: BP 126/71; PULSE 63; RESP 18; TEMP 36.50292; O2SAT 99
[2024-09-04 08:00] VITALS: BP 96/50; PULSE 66; RESP 20; TEMP 36.114; O2SAT 100
[2024-09-04 12:00] VITALS: BP_DIAS 70; PULSE 70; RESP 20; TEMP 36.114; O2SAT 98
[2024-09-04 16:00] VITALS: BP 126/70; PULSE 71; RESP 20; TEMP 36.114; O2SAT 100
[2024-09-04 20:00] VITALS: BP 118/68; PULSE 72; RESP 19; TEMP 36.3918; O2SAT 100
[2024-09-05 04:00] VITALS: BP 102/48; RESP 18; TEMP 36.72516; O2SAT 100
[2024-09-05 08:00] VITALS: BP 118/63; PULSE 60; RESP 20; TEMP 35.89176; O2SAT 100
[2024-09-05 12:00] VITALS: BP 129/74; PULSE 76; RESP 20; TEMP 36.61404; O2SAT 100
[2024-09-05 16:00] VITALS: BP_SYST 109; BP_SYST 114; BP_DIAS 66; PULSE 72; RESP 20; TEMP 36.50292; O2SAT 100
[2024-09-05 20:00] VITALS: BP 105/62; PULSE 75; RESP 19; TEMP 36.3918; O2SAT 99
[2024-09-06 04:00] VITALS: BP 95/47; PULSE 69; RESP 19; TEMP 36.33624; O2SAT 97
[2024-09-06 08:00] VITALS: BP 128/60; PULSE 63; RESP 20; TEMP 36.114; O2SAT 100
[2024-09-06 12:20] VITALS: BP 109/47; PULSE 81; RESP 20; TEMP 36.6696; O2SAT 98
[2024-09-06 20:00] VITALS: BP 103/52; PULSE 82; RESP 19; TEMP 36.28068; O2SAT 97
[2024-09-07 04:00] VITALS: BP 130/60; PULSE 80; RESP 19; TEMP 36.28068; O2SAT 98
[2024-09-07 08:00] VITALS: BP 126/61; PULSE 61; RESP 17; TEMP 35.89176; O2SAT 99
[2024-09-07 12:00] VITALS: BP 104/65; PULSE 78; RESP 18; TEMP 36.3918; O2SAT 97
[2024-09-07 16:00] VITALS: BP 119/64; PULSE 68; RESP 17; TEMP 36.50292; O2SAT 99
[2024-09-07 20:00] VITALS: BP 115/60; PULSE 80; RESP 20; TEMP 36.3918; O2SAT 100
[2024-09-08 04:00] VITALS: BP 118/67; PULSE 61; RESP 20; TEMP 36.55848; O2SAT 100
[2024-09-08 20:00] VITALS: BP 115/62; PULSE 78; RESP 18; TEMP 36.3; O2SAT 99
[2024-09-09 04:00] VITALS: BP 118/61; PULSE 64; RESP 18; TEMP 36.3; O2SAT 99
[2024-09-09 05:16] VITALS: BP 118/61; PULSE 64; RESP 18; TEMP 36.6; O2SAT 99
[2024-09-09 12:00] VITALS: BP 113/56; PULSE 67; RESP 20; TEMP 36.6; O2SAT 100
[2024-09-09 16:00] VITALS: BP 122/74; PULSE 73; RESP 18; TEMP 36.7; O2SAT 99
[2024-09-10 04:00] VITALS: BP 118/60; PULSE 71; RESP 20; TEMP 35.7; O2SAT 100
[2024-09-10 08:00] VITALS: BP 120/72; PULSE 71; RESP 17; TEMP 35.9; O2SAT 99
[2024-09-10 12:00] VITALS: BP 125/68; PULSE 68; RESP 16; TEMP 35.9; O2SAT 100
[2024-09-10 16:00] VITALS: BP 128/67; PULSE 70; RESP 16; TEMP 36.1; O2SAT 100
[2024-09-10 20:00] VITALS: PULSE 80; RESP 19; TEMP 36; O2SAT 98
[2024-09-11 04:00] VITALS: BP 117/60; PULSE 68; RESP 18; TEMP 35.9; O2SAT 98
[2024-09-11 08:00] VITALS: BP 118/67; PULSE 66; RESP 16; TEMP 36.4; O2SAT 100
[2024-09-11 12:00] VITALS: BP 110/64; PULSE 68; RESP 17; TEMP 36.3; O2SAT 95
[2024-09-11 16:00] VITALS: BP 112/73; PULSE 70; RESP 16; TEMP 35.9; O2SAT 98
[2024-09-11 20:00] VITALS: BP 112/63; PULSE 81; RESP 18; TEMP 36.3
[2024-09-12 04:00] VITALS: BP 134/77; PULSE 78; RESP 18; TEMP 36.6; O2SAT 98
[2024-09-12 08:00] VITALS: BP 129/61; PULSE 65; RESP 20; TEMP 36.6; O2SAT 100
[2024-09-12 12:00] VITALS: BP 125/61; PULSE 72; RESP 20; TEMP 36.7; O2SAT 100
[2024-09-12 16:00] VITALS: BP 115/71; PULSE 77; RESP 18; TEMP 36.9; O2SAT 100
[2024-09-13 04:00] VITALS: BP 125/64; PULSE 63; RESP 18; TEMP 37.4; O2SAT 98
[2024-09-13 12:00] VITALS: BP 106/69; PULSE 69; RESP 18; TEMP 36.5; O2SAT 99
[2024-09-13 16:00] VITALS: BP 140/71; PULSE 86; RESP 18; TEMP 36.6; O2SAT 98
[2024-09-13 20:00] VITALS: BP 107/68; PULSE 74; RESP 18; TEMP 36.3; O2SAT 100
[2024-09-14 04:00] VITALS: BP 117/57; PULSE 76; RESP 18; TEMP 36.3; O2SAT 99
[2024-09-14 08:00] VITALS: BP 134/66; PULSE 71; RESP 20; TEMP 35.9; O2SAT 99
[2024-09-14 12:00] VITALS: BP 128/70; PULSE 72; RESP 20; TEMP 36.6; O2SAT 99
[2024-09-14] MEDS ORDERED: BISACODYL 10MG SUPP PR PRN (13:30)
[2024-09-14] MEDS: DOCUSATE SODIUM 100MG CAPSULE PO SCH (13:38)
[2024-09-14] MEDS: LACTULOSE 20G/30ML UDC PO PRN (13:39)
[2024-09-14 16:00] VITALS: BP 124/67; PULSE 79; RESP 20; TEMP 36.4; O2SAT 100
[2024-09-14 20:00] VITALS: BP 135/63; PULSE 97; RESP 19; TEMP 37.1; O2SAT 100
[2024-09-15] VITALS: BP 128/72; PULSE 94; RESP 19; TEMP 36.6; O2SAT 99
[2024-09-15 04:00] VITALS: BP 108/60; PULSE 68; RESP 19; TEMP 37; O2SAT 100
[2024-09-15 08:00] VITALS: BP 106/56; PULSE 61; RESP 18; TEMP 35.8; O2SAT 100
[2024-09-15 12:00] VITALS: BP 102/53; PULSE 66; RESP 17; TEMP 35.9; O2SAT 100
[2024-09-15 16:00] VITALS: BP 100/61; PULSE 64; RESP 18; TEMP 35.9; O2SAT 99
[2024-09-15 20:00] VITALS: BP 100/53; PULSE 75; RESP 20; TEMP 36.3; O2SAT 98
[2024-09-16 06:00] VITALS: BP 113/53; PULSE 69; RESP 20; TEMP 35.9; O2SAT 100
[2024-09-16 08:00] VITALS: BP 124/62; PULSE 58; RESP 18; TEMP 36.3; O2SAT 96
[2024-09-16 12:00] VITALS: BP 133/51; PULSE 67; RESP 19; TEMP 36.8; O2SAT 96
[2024-09-16 16:00] VITALS: BP 135/57; PULSE 70; RESP 18; TEMP 36.8; O2SAT 96
[2024-09-16 20:00] VITALS: BP 101/62; PULSE 84; RESP 19; TEMP 36.3; O2SAT 99
[2024-09-17 04:00] VITALS: BP 111/64; PULSE 69; RESP 19; TEMP 36.5; O2SAT 99
[2024-09-17 08:00] VITALS: BP 122/68; PULSE 62; RESP 18; TEMP 36.7; O2SAT 100
[2024-09-17 12:00] VITALS: BP 90/55; PULSE 70; RESP 20; TEMP 36.8; O2SAT 99
[2024-09-17 16:00] VITALS: BP 109/53; PULSE 75; RESP 18; TEMP 36.6; O2SAT 99
[2024-09-17 20:00] VITALS: BP 114/65; PULSE 84; RESP 18; TEMP 36.4; O2SAT 97
[2024-09-18] VITALS: BP 115/62; PULSE 88; RESP 18; TEMP 36.3; O2SAT 98
[2024-09-18 04:00] VITALS: PULSE 67; RESP 18; TEMP 36.3
[2024-09-18 08:00] VITALS: BP 114/72; PULSE 59; RESP 18; TEMP 36.7; O2SAT 98
[2024-09-18 12:00] VITALS: BP 108/63; PULSE 65; RESP 19; TEMP 36.1; O2SAT 96
[2024-09-18 16:00] VITALS: BP 124/77; PULSE 75; RESP 16; TEMP 36.1; O2SAT 99
[2024-09-18 20:00] VITALS: BP 104/65; PULSE 87; RESP 18; TEMP 36.8; O2SAT 96
[2024-09-19 12:26] VITALS: BP 113/66; PULSE 72; RESP 20; TEMP 36.3; O2SAT 97
[2024-09-19 16:00] VITALS: BP 124/62; PULSE 77; RESP 20; TEMP 36.3; O2SAT 97
[2024-09-19 20:00] VITALS: BP 117/62; PULSE 81; RESP 19; TEMP 36.4; O2SAT 100
[2024-09-20 04:00] VITALS: BP 108/65; PULSE 64; RESP 19; TEMP 36.3; O2SAT 100
[2024-09-20 08:00] VITALS: BP 126/57; PULSE 61; RESP 20; TEMP 36.8; O2SAT 100
[2024-09-20 12:00] VITALS: BP 111/76; PULSE 76; RESP 20; TEMP 36.9; O2SAT 95
[2024-09-20 16:00] VITALS: BP 113/54; PULSE 74; RESP 20; TEMP 36.6; O2SAT 96
[2024-09-20 20:00] VITALS: BP 107/52; PULSE 80; RESP 18; TEMP 36.4; O2SAT 100
[2024-09-21 04:00] VITALS: BP 119/50; PULSE 60; RESP 18; TEMP 36.6; O2SAT 98
[2024-09-21 08:06] VITALS: BP 123/66; PULSE 56; RESP 20; TEMP 36.7; O2SAT 100
[2024-09-21 11:53] VITALS: BP 115/61; PULSE 70; RESP 20; TEMP 36.6; O2SAT 100
[2024-09-21 16:00] VITALS: BP 125/61; PULSE 71; RESP 20; TEMP 36.7; O2SAT 100
[2024-09-21 20:00] VITALS: BP 113/65; PULSE 81; RESP 18; TEMP 36.4; O2SAT 100
[2024-09-22 04:00] VITALS: BP 108/57; PULSE 73; RESP 18; TEMP 36.6; O2SAT 98
[2024-09-22 08:00] VITALS: BP 110/61; PULSE 68; RESP 19; TEMP 36.6; O2SAT 100
[2024-09-22 12:00] VITALS: BP 129/66; PULSE 77; RESP 17; TEMP 36.2; O2SAT 98
[2024-09-22 16:00] VITALS: BP 117/57; PULSE 72; RESP 17; TEMP 36.2; O2SAT 97
[2024-09-22 17:02] LABS: HEMATOCRIT 31.2 % (36.0-48.0); HEMOGLOBIN 10.5 g/dL (12.0-16.0); MEAN CORPUSCULAR HEMOGLOBIN 31.5 pg (28.0-32.0); MEAN CORPUSCULAR HGB CONC 33.7 g/dL (31.0-37.0); MEAN CORPUSCULAR VOLUME 93.6 fL (81.0-99.0); PLATELET 325 x1000/uL (130-400); RED BLOOD CELL COUNT 3.33 mill/uL (4.2-5.4); RED CELL DISTRIBUTION WIDTH 12.8 % (11.6-14.6); WHITE BLOOD COUNT 7.1 x1000/uL (4.5-11.0)
[2024-09-22 17:10] LABS: CHLORIDE 104 mEq/L (98-107); POTASSIUM 4.1 mEq/L (3.5-5.1); SODIUM 139 mEq/L (136-145)
[2024-09-22 17:11] LABS: CALCIUM 9.9 mg/dL (8.7-10.4); CARBON DIOXIDE 30 mEq/L (21-32)
[2024-09-22 17:16] LABS: CREATININE 0.7 mg/dL (0.6-1.0); GLUCOSE 93 mg/dL (70-105); UREA NITROGEN BLOOD 13 mg/dL (9-23)
[2024-09-22 17:18] LABS: ALANINE AMINOTRANSFERASE 15 IU/L (10-49); ALBUMIN 3.8 g/dL (3.2-4.8); ASPARTATE AMINOTRANSFERASE 12 IU/L (<34); BILIRUBIN TOTAL 0.3 mg/dL (0.1-1.0)
[2024-09-22 20:00] VITALS: BP 110/63; PULSE 80; RESP 19; TEMP 36.3; O2SAT 100
[2024-09-23 04:00] VITALS: BP 107/47; PULSE 74; RESP 19; TEMP 36.3; O2SAT 100
[2024-09-23 08:00] VITALS: BP 133/68; PULSE 63; RESP 19; TEMP 36.3; O2SAT 100
[2024-09-23 12:00] VITALS: BP 123/67; PULSE 66; RESP 19; TEMP 36.3; O2SAT 99
[2024-09-23 16:00] VITALS: BP 114/54; PULSE 70; RESP 19; TEMP 36.4; O2SAT 98
[2024-09-23 20:00] VITALS: BP 116/72; PULSE 83; RESP 18; TEMP 36.6; O2SAT 95
[2024-09-24 04:00] VITALS: BP 100/63; PULSE 61; RESP 16; TEMP 36.3; O2SAT 100
[2024-09-24 08:00] VITALS: BP 99/59; PULSE 60; RESP 19; TEMP 36.6; O2SAT 100
[2024-09-24 12:00] VITALS: BP 119/66; PULSE 67; RESP 18; TEMP 36.7; O2SAT 99
[2024-09-24 16:00] VITALS: BP 122/56; PULSE 60; RESP 19; TEMP 36.4; O2SAT 100
[2024-09-24 20:00] VITALS: BP 116/60; PULSE 71; RESP 18; TEMP 36.7; O2SAT 99
[2024-09-25 04:00] VITALS: BP 92/60; PULSE 62; RESP 18; TEMP 36.7; O2SAT 96
[2024-09-25 08:00] VITALS: BP 107/46; PULSE 58; RESP 18; TEMP 36.3; O2SAT 100
[2024-09-25 12:00] VITALS: BP 99/54; PULSE 64; RESP 17; TEMP 36.6; O2SAT 98
[2024-09-25 14:46] VITALS: BP 107/47; PULSE 64; TEMP 97.8; O2SAT 98
[2024-09-25 16:00] VITALS: BP 111/64; PULSE 74; RESP 18; TEMP 36.6; O2SAT 99
[2024-09-25 20:00] VITALS: BP 125/71; PULSE 83; RESP 18; TEMP 36.4; O2SAT 97
[2024-09-26 08:00] VITALS: BP 112/53; PULSE 56; RESP 20; TEMP 36.7; O2SAT 98
== END 2024-09-26 12:03 | disposition home or self-care (01) | DRG 54 ==
LOC: ER 05:19 → 5WST 06:32 → EDBEDREQ 06:54 → EDBEDREQTM 06:54 → 6WST 18:50 → 4WST 08-15 01:50 → 6WST 09-02 16:07 → 7EST 09-14 08:09 → 4WST 09-15 18:39 → 7EST 09-15 18:41
PROVIDERS: ADMIT Hospitalist; ATTEND Hospitalist
PROC: GZ56ZZZ Individual Psychotherapy, Supportive (ICD-10-PCS; principal; 2024-08-24)
DX: G44.209 Tension-type headache, unspecified, not intractable (principal); I69.351 Hemiplegia and hemiparesis following cerebral infarction affecting right dominant side; I10 Essential (primary) hypertension; I25.10 Atherosclerotic heart disease of native coronary artery without angina pectoris; E78.5 Hyperlipidemia, unspecified; F39 Unspecified mood [affective] disorder; D64.9 Anemia, unspecified; M19.09 Primary osteoarthritis, other specified site; F41.9 Anxiety disorder, unspecified; R20.9 Unspecified disturbances of skin sensation; Z74.01 Bed confinement status; Z79.01 Long term (current) use of anticoagulants; Z86.718 Personal history of other venous thrombosis and embolism; Z79.02 Long term (current) use of antithrombotics/antiplatelets; Z79.82 Long term (current) use of aspirin; Z79.899 Other long term (current) drug therapy
CPT/HCPCS: 36415; 71045; 80048; 80053; 80061; 84443; 85025; 85027; 93970; 97110; 97112; 97140; 97162; 97166; 97530; 97535; 97542; 99285; A4565; A4606; C1893